=== PATIENT | female | born 2000 | race Caucasian/White ===

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

== ENCOUNTER 2021-05-30 07:52 | Outpatient (CLI) | payer BC, MEDICAID, SELFPAY ==
--- NOTE | 2021-05-30 07:57 | USCV_ITS ---
Leidy Tavares Age: 21 Gender: F : 2000 Exam Date: 05/30/2021 08:36 Ordering Phys: Jeannette Bañuelos CAN RUNNER Technologist: CHYNA [place]am Location[place] [facility] [place] Indication: CHEST PAIN BP: 128 / 78 HR: 70 Rhythm: Other Technical Quality: Good MEASUREMENTS (Male / Female) Normal Values 2D ECHO LV Diastolic Diameter PLAX 4.0 cm 4.2 - 5.9 / 3.9 - 5.3 cm LV Systolic Diameter PLAX 2.6 cm IVS Diastolic Thickness 0.5 cm 0.6 - 1.0 / 0.6 - 0.9 cm IVS Systolic Thickness 0.8 cm LVPW Diastolic Thickness 1.2 cm 0.6 - 1.0 / 0.6 - 0.9 cm LVPW Systolic Thickness 1.6 cm LVOT Diameter 1.7 cm LV Ejection Fraction 2D Teich 63.5 % LV Ejection Fraction MOD 2C 65.5 % LV Ejection Fraction 2C AL 67.9 % LA Diameter 2.2 cm LA Width 3.1 cm LA Height 3.9 cm RA Width 2.6 cm RA Height 3.5 cm Aorta at Sinotubular Diameter 1.7 cm DOPPLER AV Peak Velocity 141.0 cm/s LVOT Peak Velocity 119.0 cm/s AV Area Cont Eq vti 1.7 cm squared AV Area Cont Eq pk 1.9 cm squared MV Peak Velocity 113.0 cm/s MV Area PHT 4.8 cm squared Mitral E to A Ratio 2.5 MV E' Velocity 57.5 cm/s Mitral E to MV E' Ratio 5.5 Mitral E to LV E' Lateral Ratio 4.7 Mitral E to LV E' Septal Ratio 6.7 TR Peak Velocity 219.5 cm/s TR Peak Gradient 19.3 mmHg TR Mean Velocity 194.5 cm/s TR Mean Gradient 15.9 mmHg TR Velocity Time Integral 49.7 cm Right Atrial Pressure 3.0 mmHg Pulmonary Artery Systolic Pressu 22.3 mmHg PV Peak Velocity 85.0 cm/s RV Acceleration Time 0.1 s RV Ejection Time 0.3 s RV AcT/ET 0.4 FINDINGS Left Ventricle Normal left ventricular size and systolic function, EF 61 %. No regional wall motion abnormalities. Right Ventricle The right ventricle is normal in size and function. Right Atrium The right atrium is normal in size. Left Atrium The left atrium is normal in size. Mitral Valve No gross abnormalities noted Aortic Valve No gross abnormalities noted Tricuspid Valve Trace tricuspid valve regurgitation. Pulmonic Valve No gross abnormalities noted Pericardium Normal pericardium without effusion. Aorta Normal ascending aorta dimension. CONCLUSIONS Normal left ventricular size and systolic function, EF 61 %. No regional wall motion abnormalities. Normal cardiac chamber sizes. No significant valvular abnormalities Trace of tricuspid regurgitation No intracardiac shunts by color flow Doppler exam There is no pericardial effusion. There are no intracardiac masses. No significant abnormalities of the aortic arch. No previous study is available for comparison. Dr Jose Maria Churchill MD FACC (Electronically Signed) Final Date: 03 June 2021 17:25 S
== END 2021-05-30 07:53 | disposition home or self-care (01) ==
LOC: RAD 07:55
PROVIDERS: PCP Family Medicine; Visit Provider Nurse Practitioner Family
DX: I47.1 Supraventricular tachycardia (principal); R07.9 Chest pain, unspecified; R42 Dizziness and giddiness; M79.89 Other specified soft tissue disorders; I07.1 Rheumatic tricuspid insufficiency
CPT/HCPCS: 93306

== ENCOUNTER 2021-06-25 12:53 | Outpatient (CLI) | payer BC, MEDICAID, SELFPAY ==
--- NOTE | 2021-06-25 13:00 | ECG_ITS ---
[facility] Test Date: 2021-06-25 Pat Name: Leidy Tavares Department: Room: Gender: Female Hand Molder: : 2000 Requested By: Jose Maria Churchill Order Number: [id number] Jan MD: Jose Maria Churchill M.D. Interpretive Statements NAME OF STUDY: TREADMILL STRESS TEST INDICATION: Chest Pain, PROCEDURE: At the baseline, the patient's blood pressure was 108/69 with a heart rate of 86. The baseline electrocardiogram showed normal sinus rhythm with nonspecific T wave changes. Poor R wave progression. Possible right atrial enlargement. The patient exercised for 10 minutes and 2 seconds on a standard [facility] protocol. Patient attained a maximum heart rate of 186 beats per minute(93% of the maximum predicted heart rate) with a blood pressure at the peak exercise of 123/73 mm Hg. The EKG at the peak exercise revealed no significant ST-T changes.. Patient did not have any chest pain or any significant cardiac arrhythmias with the exercise During the recovery phase, there were no new changes. Blood pressure at the end of the recovery phase was 115/65 mm Hg with a heart rate of 96 per minute. CONCLUSION: 1. Nonspecific EKG response to treadmill exercise 2. No exercise-induced chest pain or cardiac arrhythmia 3. Goodexercise tolerance, attained a maximum of 13.5 METs Electronically Signed On 07-04-2021 23:56:42 CDT by Jose Maria Churchill M.D. [id number]
[2021-06-25 13:01] VITALS: BMI 18.6
[2021-06-25 13:38] VITALS: BP 115/65; PULSE 93
== END 2021-06-25 12:54 | disposition home or self-care (01) ==
LOC: CDL 12:57
PROVIDERS: PCP Family Medicine; Visit Provider Internal Medicine Cardiovascular Disease
DX: R07.9 Chest pain, unspecified (principal)
CPT/HCPCS: 93017

== ENCOUNTER → 2021-12-18 15:13 | Outpatient (BNVA) | payer BC, MEDICAID, SELFPAY | PROVIDERS: PCP Family Medicine; Visit Provider Internal Medicine Cardiovascular Disease | DX: R07.9 Chest pain, unspecified (principal); R55 Syncope and collapse; I12.9 Hypertensive chronic kidney disease with stage 1 through stage 4 chronic kidney disease, or unspecified chronic kidney disease; N18.9 Chronic kidney disease, unspecified | CPT/HCPCS: 80053; 84443; 85025; 99214 ==

== ENCOUNTER 2022-03-28 14:14 | Outpatient (CLI) | payer BC, MEDICAID, SELFPAY ==
--- NOTE | 2022-03-28 14:26 | CTR_ITS ---
PROCEDURE INFORMATION: Exam: CT Temporal Bones Without Contrast. Exam date and time: 03/28/2022 2:52 PM Age: 21 years old Clinical indication: Pain; Other: Ear, right; Additional info: Chronic otitis media TECHNIQUE: Imaging protocol: Computed tomography of the temporal bones without contrast. Radiation optimization: All CT scans at this facility use at least one of these dose optimization techniques: automated exposure control; mA and/or kV adjustment per patient size (includes targeted exams where dose is matched to clinical indication); or iterative reconstruction. COMPARISON: No relevant prior studies available. RADIATION DOSE METRICS: Total DLP (mGy-cm): 579.54 FINDINGS: Right inner ear: Normal. Right ossicles and middle ear: Normal. The middle ear ossicles are intact. Right external auditory canal: Normal. Right facial nerve canal: Normal. Right jugular foramen: No jugular dehiscence. Right carotid canal: No aberrant carotid canal. Right mastoid air cells: Normal. No mastoid effusions. Left inner ear: Normal. Left ossicles and middle ear: Normal. The middle ear ossicles are intact. Left external auditory canal: Normal. Left facial nerve canal: Normal. Left jugular foramen: No jugular dehiscence. Left carotid canal: No aberrant carotid canal. Left mastoid air cells: Normal. No mastoid effusions. Soft tissues: Unremarkable. CT/CT temporal bone wo con* [id number] IMPRESSION: No acute findings.
== END 2022-03-28 14:15 | disposition home or self-care (01) ==
PROVIDERS: PCP Family Medicine; Visit Provider Otolaryngology
DX: H66.23 Chronic atticoantral suppurative otitis media, bilateral (principal)
CPT/HCPCS: 70480

== ENCOUNTER → 2022-04-03 14:24 | Outpatient (BNVA) | payer BC, MEDICAID, SELFPAY | PROVIDERS: PCP Family Medicine; Visit Provider Internal Medicine Cardiovascular Disease | DX: I49.9 Cardiac arrhythmia, unspecified (principal); J45.909 Unspecified asthma, uncomplicated; R07.9 Chest pain, unspecified | CPT/HCPCS: 99213; 99214 ==

== ENCOUNTER 2023-05-28 02:38 | Outpatient (CLI) | payer BC, MEDICAID, SELFPAY ==
[2023-05-28 02:43] VITALS: BP 158/87; PULSE 92; RESP 16; TEMP 36.8; O2SAT 100; BMI 18.1
--- NOTE | 2023-05-28 02:48 | XRR_ITS ---
PROCEDURE INFORMATION: Exam: XR Left Hand Exam date and time: 05/28/2023 3:15 AM Age: 23 years old Clinical indication: Injury or trauma; Blunt trauma (contusions or hematomas); Hand; Left; Patient HX: Punched wall, pain 5th metacarpal TECHNIQUE: Imaging protocol: Radiologic exam of the left hand. Views: 3 or more views. COMPARISON: No relevant prior studies available. FINDINGS: Bones/joints: Normal. No acute fracture. Soft tissues: Normal. XR/XR hand LT min 3V* [id number] IMPRESSION: No acute findings.
--- NOTE | 2023-05-28 02:50 | W.ED.EXTPRO ---
HPI - Extremity Problem General: Chief complaint: Extremity Injury, Upper Stated complaint: hit a wall Time Seen by Provider: 05/28/23 02:43 Source: patient Mode of arrival: ambulatory Limitations: no limitations History of Present Illness: 23-year-old female states that she punched a wall 3 hours ago. She states she punched with her left hand and has pain over the lateral left hand she rates her pain a 5 out of 10 she has contusions over her knuckles. She denies any wrist pain denies any other injuries Associated symptoms: Deny chest pain or fever(s) Review of Systems Const: Denies: fever(s) or chills ENMT: Denies: throat pain or dental pain Card: Denies: chest pain Resp: Denies: dyspnea GI: Denies: abdominal pain Musc: Reports: extremity pain; Denies: neck pain or back pain Neuro: Denies: headache(s) PFS ED PFSH: Medical History Chest pain Chronic headache Dizziness Fatigue Head ache Insomnia Leg swelling Near syncope SVT (supraventricular tachycardia) Surgical History History of placement of ear tubes History of tonsillectomy Myringotomy tube status Family History Brother Lung disease Family/Other Cancer Father Hypertension Stroke CAD (coronary artery disease) Grandmother Clotting disorder CAD (coronary artery disease) Chronic kidney disease (CKD) Other Thyroid disease Denies family history of Diabetes Dementia Suicide Anesthesia complication Bleeding disorder Social History Smoking and tobacco status: never smoked Alcohol intake: never Substance/Drug Use: never Physical Exam Const: COMMON NORMALS: no acute distress and patient oriented x3 HENMT: COMMON NORMALS: atraumatic HEAD & SCALP: atraumatic Eye: COMMON NORMALS: conjunctivae normal CONJUNCTIVA: Yes conjunctivae normal Neck/C-Spine: COMMON NORMALS: supple Chest: COMMONS NORMALS: normal inspection of the chest Resp: COMMON NORMALS: normal respiratory effort Extremity: NARRATIVE EXTREMITY EXAM: Bruising tenderness over fourth and fifth MCP joints Neuro: COMMON NORMALS: patient oriented x3 Psych: COMMON NORMALS: mental status grossly normal Skin: COMMON NORMALS: no rashes or lesions noted GENERAL SKIN EXAM: no rashes or lesions noted Course Vital Signs: Vital signs: Vital Signs Temperature 98.2 F 05/28/23 02:43 Pulse Rate 92 05/28/23 02:43 Respiratory Rate 16 05/28/23 02:43 Blood Pressure 158/87 05/28/23 02:43 Pulse Oximetry 100 05/28/23 02:43 Oxygen Delivery Me thod Room Air 05/28/23 02:43 MDM - Extremity (Nontraumatic) Medical Decision Making Patient presents with hand contusion from punching a wall x-ray shows no fracture she is stable for discharge. Medical Records I reviewed the patient's medical records. Lab Data I reviewed the patient's lab results. Discharge Plan Discharge Patient Disposition: Home Clinical Impression: Contusion of hand, left Condition: Stable Prescriptions: New Naprosyn 500 mg tablet 500 mg PO BID PRN (Reason: pain) Qty: 20 0RF No Action magnesium oxide 250 mg magnesium tablet 250 mg PO DAILY albuterol sulfate 90 mcg/actuation HFA aerosol inhaler 2 puff inhalation Q6H PRN amitriptyline 10 mg tablet 20 mg PO DAILY Vitafol Gummies 3.33 mg iron- 0.33 mg tablet,chewable 3 tab PO DAILY cholecalciferol (vitamin D3) 25 mcg (1,000 unit) capsule 25 mcg PO DAILY metoprolol tartrate 25 mg tablet 25 mg PO .2PM 1AM 30 Days Qty: 90 5RF azelastine 137 mcg (0.1 %) aerosol,spray 1 spray intranasal BID PRN Rx Instructions: administer into each nostril Discharge Orders: Discharge ED (Routine); Ordered 05/28/23 Ordered By: Ada Bassett Referrals: Janet Kellogg MD [Primary Care Provider] - 1-3 days Discharge Diet: Advance as tolerated Discharge Activity: Resume usual activity Patient Instructions: Contusion in Adults (ED) Coding Level of Care Code ED Operations Specialist for Arvind Barcenas
[2023-05-28] MEDS: naproxen 500 mg Tablet PO (02:56)
[2023-05-28 03:47] VITALS: BP 118/80; PULSE 104; RESP 14; O2SAT 98
--- NOTE | 2024-01-18 16:59 | XRR_ITS ---
PROCEDURE INFORMATION: Exam: XR Left Hip Exam date and time: 01/18/2024 5:02 PM Age: 23 years old Clinical indication: Hip pain; Left hip; Additional info: Left hip pain TECHNIQUE: Imaging protocol: Radiologic exam of the left hip. Views: 2 or 3 views hip with pelvis when performed. COMPARISON: No relevant prior studies available. FINDINGS: Bones/joints: Unremarkable. No acute fracture. Soft tissues: Unremarkable. XR/XR hip LT 2-3V wo/w pel* [id number] IMPRESSION: No acute findings.
== END 2024-01-18 16:45 | disposition home or self-care (01) ==
LOC: ER 03:45 → RAD 01-18 16:46
PROVIDERS: Emergency Provider Emergency Medicine; PCP Family Medicine; Visit Provider Family Medicine
DX: S60.222A Contusion of left hand, initial encounter (principal); W22.09XA Striking against other stationary object, initial encounter; M25.552 Pain in left hip; J02.9 Acute pharyngitis, unspecified
CPT/HCPCS: 73130; 73502; 87880; 99283

== ENCOUNTER → 2023-06-21 14:51 | Outpatient (BNVA) | payer BC, MEDICAID, SELFPAY | PROVIDERS: PCP Family Medicine; Visit Provider Emergency Medicine | DX: R39.9 Unspecified symptoms and signs involving the genitourinary system (principal); H69.93 Unspecified Eustachian tube disorder, bilateral; N12 Tubulo-interstitial nephritis, not specified as acute or chronic | CPT/HCPCS: 81000 ==

== ENCOUNTER 2024-11-21 15:30 | Oncology outpatient (recurring) (ONCR) | payer BC, MEDICAID, SELFPAY ==
[2024-11-07] MEDS: sodium chloride 0.9% 250 ML 75 ML IV (15:33)
[2024-11-07] MEDS: iron sucrose 200 MG in sodium chloride 0.9% 50 ML 240 MG IV (15:35)
[2024-11-07 16:22] VITALS: BP 112/62; PULSE 79; RESP 16; TEMP 35.8; O2SAT 98
[2024-11-09] MEDS: iron sucrose 200 MG in sodium chloride 0.9% 50 ML 240 MG IV (16:13)
[2024-11-09 16:37] VITALS: BP 105/73; PULSE 81; RESP 16; TEMP 35.9; O2SAT 98
[2024-11-11 08:41] VITALS: BP 114/83; PULSE 88; RESP 18; TEMP 36.8; O2SAT 100
[2024-11-11] MEDS: iron sucrose 200 MG in sodium chloride 0.9% 50 ML 240 MG IV (09:13)
[2024-11-11] MEDS: sodium chloride 0.9% 250 ML 75 ML IV (09:15)
[2024-11-11 11:46] VITALS: BP 115/85; PULSE 84; RESP 18; TEMP 36.8; O2SAT 100
[2024-11-14 15:22] VITALS: BP 112/72; PULSE 71; RESP 18; TEMP 36.7; O2SAT 99
[2024-11-14] MEDS: iron sucrose 200 MG in sodium chloride 0.9% 50 ML 240 MG IV (15:35)
[2024-11-14] MEDS: sodium chloride 0.9% 250 ML 75 ML IV (15:36)
[2024-11-14 16:24] VITALS: BP 107/73; PULSE 70; RESP 70; TEMP 37; O2SAT 99
== END 2024-11-25 23:59 | disposition home or self-care (01) ==
PROVIDERS: PCP Family Medicine; Visit Provider Family Medicine
DX: Z53.9 Procedure and treatment not carried out, unspecified reason (principal)
CPT/HCPCS: 96365; J1756; J7050